=== PATIENT | female | born 1985 | race African-American/Black ===

== ENCOUNTER 2020-03-03 02:10 | Emergency (ER) | payer MEDICAID ==
[~2020-03-03] VITALS: Ht 162.6 cm; Wt 55.0 kg
[2020-03-03 09:20] VITALS: BP 126/67
== END 2020-03-03 09:21 | disposition home or self-care (01) ==
LOC: ER 02:10
DX: Z04.89 Encounter for examination and observation for other specified reasons (principal); Z59.0 Homelessness
CPT/HCPCS: 99285